=== PATIENT | female | born 1995 | race American Indian/Alaskan Native ===

== ENCOUNTER 2021-11-25 07:13 | Day surgery (SDC) | payer OTHER, MEDICAID ==
[~2021-11-25 07:13] MED LIST: Dextrose 5%-0.45% NaCl 1,000 ML IV SCH; Midazolam 1 MG/ML 2 ML SDV ONE; Sodium Chloride 0.9% 10 ML Syringe FLUSH PRN; Sodium Chloride 0.9% 10 ML Syringe FLUSH SCH; fentaNYL 100 MCG/2 ML SDV ONE
[2021-11-25] MEDS ORDERED: Midazolam 1 MG/ML 2 ML SDV IV ONE ×5 (07:14→08:25)
[2021-11-25] MEDS ORDERED: fentaNYL 100 MCG/2 ML SDV IV ONE ×3 (07:14→08:20)
== END 2021-11-25 10:45 | disposition home or self-care (01) ==
LOC: DL.ENDO 07:13
PROVIDERS: ATTEND Internal Medicine Gastroenterology
DX: K57.31 Diverticulosis of large intestine without perforation or abscess with bleeding (principal); K64.4 Residual hemorrhoidal skin tags; K64.8 Other hemorrhoids; K59.09 Other constipation; E66.09 Other obesity due to excess calories; Z88.8 Allergy status to other drugs, medicaments and biological substances; Z01.812 Encounter for preprocedural laboratory examination; Z20.822 Contact with and (suspected) exposure to COVID-19; Z86.16 Personal history of COVID-19
CPT/HCPCS: 45378; 87635; J2250; J3010; J7042; U0002

== ENCOUNTER 2021-12-23 06:42 | Day surgery (SDC) | payer OTHER, MEDICAID ==
[2021-12-23] MEDS ORDERED: Midazolam 1 MG/ML 2 ML SDV IV ONE ×3 (06:43→08:40)
[2021-12-23] MEDS ORDERED: fentaNYL 100 MCG/2 ML SDV IV ONE ×3 (06:43→08:38)
[2021-12-23] MEDS ORDERED: Dextrose 5%-0.45% NaCl 1,000 ML IV SCH (07:15)
== END 2021-12-23 10:55 | disposition home or self-care (01) ==
LOC: DL.ENDO 06:42
PROVIDERS: ATTEND Internal Medicine Gastroenterology
DX: D72.820 Lymphocytosis (symptomatic) (principal); E66.09 Other obesity due to excess calories; K59.09 Other constipation; Z68.41 Body mass index [BMI] 40.0-44.9, adult; Z01.812 Encounter for preprocedural laboratory examination; Z20.822 Contact with and (suspected) exposure to COVID-19
CPT/HCPCS: 87077; J2250; J3010; J7042; U0002

== ENCOUNTER 2023-03-20 12:10 | Emergency (ER) | payer OTHER ==
[2023-03-20] MEDS ORDERED: Sodium Chloride 0.9% 10 ML Syringe FLUSH PRN (12:33)
[2023-03-20] MEDS ORDERED: Sodium Chloride 0.9% 1,000 ML IV ONE ×2 (12:34→12:36)
[2023-03-20] MEDS ORDERED: Ketorolac 30 MG/ML SDV IVPUSH ONE (12:34)
[2023-03-20] MEDS ORDERED: diphenhydrAMINE 50 MG/ML SDV IVPUSH ONE (12:35)
[2023-03-20] MEDS ORDERED: Butorphanol 2 MG/ML SDV IVPUSH ONE (12:37)
[2023-03-20 12:50] LABS: BASOPHILS PERCENT AUTO 0.6 % (0.0-1.0); EOSINOPHILS PERCENT AUTO 2.5 % (1.0-3.0); HEMATOCRIT 36.8 % (37.0-47.0); HEMOGLOBIN 12.1 g/dL (12.0-16.0); LYMPHOCYTES PERCENT AUTO 26.1 % (20.5-50.1); MEAN CORPUSCULAR HEMOGLOBIN 28.5 pg (27.0-34.0); MEAN CORPUSCULAR HGB CONC 32.9 g/dL (33.0-35.0); MEAN CORPUSCULAR VOLUME 86.8 fL (80-100); MONOCYTES PERCENT AUTO 5.2 % (2-8); NEUTROPHILS PERCENT AUTO 65.6 % (42.2-75.2); PLATELET COUNT,PLT 321 10^3/uL (150-450); RED BLOOD CELL COUNT 4.24 10^6/uL (4.2-5.4); WHITE BLOOD CELL COUNT,WBC 8.3 10^3/uL (5.0-10.0)
[2023-03-20 13:26] LABS: SEDIMENTATION RATE MANUAL 7 mm/hr (0-20)
== END 2023-03-20 14:20 | disposition home or self-care (01) ==
LOC: DL.ED 12:10
DX: G43.809 Other migraine, not intractable, without status migrainosus (principal); J45.909 Unspecified asthma, uncomplicated; E66.9 Obesity, unspecified; Z88.8 Allergy status to other drugs, medicaments and biological substances; Z86.16 Personal history of COVID-19; Z79.51 Long term (current) use of inhaled steroids; Z68.41 Body mass index [BMI] 40.0-44.9, adult
CPT/HCPCS: 36415; 85025; 85651; 86140; 96361; 96374; 96375; 99283; J0595; J1200; J1885; J7030; J3490

== ENCOUNTER 2025-02-23 00:04 | Inpatient (IN) | payer BC, OTHER ==
[~2025-02-23 00:04] MED LIST changes: +Carboprost Tromethamine 250 MCG/1 ML Amp IM PRN; -Dextrose 5%-0.45% NaCl 1,000 ML IV SCH; -Midazolam 1 MG/ML 2 ML SDV ONE; +Misoprostol 50 MCG (1/2 of 100 MCG) Tab PO SCH; +Oxytocin/Lactated Ringers 30 UNIT/500 ML BAG IV SCH; -Sodium Chloride 0.9% 10 ML Syringe FLUSH SCH; +fentaNYL 100 MCG/2 ML SDV IVPUSH PRN; -fentaNYL 100 MCG/2 ML SDV ONE
[2025-02-23 00:40] LABS: PLATELET COUNT,PLT 225.0 10^3/uL (150-450); RED BLOOD CELL COUNT 3.95 10^6/uL (4.2-5.4); WHITE BLOOD CELL COUNT,WBC 11.0 10^3/uL (5.0-10.0)
[2025-02-23] MEDS: Misoprostol 50 MCG (1/2 of 100 MCG) Tab PO PRN (02:14)
[2025-02-23] MEDS: Penicillin G Potassium 5 MILLUNITS in Sodium Chloride 0.9% 100 ML IV ONE ×2 (11:35→12:44)
[2025-02-23] MEDS: Lactated Ringers 1,000 ML IV SCH (12:30)
[2025-02-23] MEDS: Penicillin G Potassium 3 MILLUNITS in Sodium Chloride 0.9% 100 ML IV SCH ×2 (12:43→14:59)
[2025-02-23] MEDS: Oxytocin/Normal Saline 30 UNIT/500 ML BAG IV SCH (15:31)
[2025-02-23] MEDS: Ondansetron 4 MG/2 ML SDV IVPUSH PRN (21:18)
[2025-02-23] MEDS: Nalbuphine HCl 10 MG/ 1ML Amp IM STA (22:16)
[2025-02-24] MEDS: Nalbuphine HCl 10 MG/ 1ML Amp IM STA (03:04)
[2025-02-24] MEDS ORDERED: fentaNYL 100 MCG/2 ML SDV ONE (11:07)
[2025-02-24] MEDS ORDERED: ePHEDrine 50 MG/ML SDV ONE ×2 (11:08→18:51)
[2025-02-24] MEDS ORDERED: Oxytocin/Normal Saline 30 UNIT/500 ML BAG ONE (16:12)
[2025-02-24] MEDS ORDERED: Sodium Chloride 0.9% 10 ML Syringe FLUSH PRN (16:32)
[2025-02-24] MEDS ORDERED: Oxytocin 10 Units/1 ML SDV IM PRN (16:32)
[2025-02-24] MEDS ORDERED: Carboprost Tromethamine 250 MCG/1 ML Amp IM PRN ×2 (16:32→18:24)
[2025-02-24] MEDS ORDERED: Lactated Ringers 1,000 ML IV SCH ×2 (16:45)
[2025-02-24] MEDS ORDERED: Oxytocin/Lactated Ringers 30 UNIT/500 ML BAG IV SCH (16:45)
[2025-02-24] MEDS ORDERED: Ondansetron 4 MG/2 ML SDV IVPUSH PRN (18:24)
[2025-02-24] MEDS ORDERED: ePHEDrine 50 MG/ML SDV IVPUSH PRN (18:24)
[2025-02-24] MEDS ORDERED: Acetaminophen/oxyCODONE 325-5 MG Tab PO PRN (18:24)
[2025-02-24] MEDS ORDERED: diphenhydrAMINE 50 MG/ML SDV IVPUSH PRN (18:24)
[2025-02-24] MEDS ORDERED: Ketorolac 30 MG/ML SDV IVPUSH SCH (18:30)
[2025-02-24] MEDS ORDERED: Ondansetron 4 MG/2 ML SDV ONE (18:51)
[2025-02-24] MEDS ORDERED: Dexamethasone 4 MG/ML SDV ONE (18:52)
[2025-02-24] MEDS ORDERED: Ketorolac 30 MG/ML SDV ONE (18:53)
[2025-02-24] MEDS: Ketorolac 30 MG/ML SDV IVPUSH SCH (23:56)
[2025-02-25] MEDS: Lactated Ringers 1,000 ML IV SCH
[2025-02-25] MEDS: Sodium Chloride 0.9% 10 ML Syringe FLUSH SCH (00:16)
[2025-02-25] MEDS: Lactated Ringers 1,000 ML IV ONE (00:17)
[2025-02-25 05:56] LABS: PLATELET COUNT,PLT 199.0 10^3/uL (150-450); RED BLOOD CELL COUNT 3.5 10^6/uL (4.2-5.4); WHITE BLOOD CELL COUNT,WBC 15.7 10^3/uL (5.0-10.0)
[2025-02-25] MEDS: Prenatal Multivitamin with Calcium/Folic Acid/Iron Tab PO SCH (08:37)
[2025-02-25] MEDS: Acetaminophen/oxyCODONE 325-5 MG Tab PO PRN (15:06)
[2025-02-26] MEDS: Ondansetron 4 MG Tab.DIS PO ONE (09:15)
[2025-02-26] MEDS: Ondansetron 4 MG Tab.DIS PO PRN (16:50)
[2025-02-26] MEDS: diphenhydrAMINE 50 MG/ML SDV IM ONE (17:08)
[2025-02-26] MEDS: Ketorolac 30 MG/ML SDV IM ONE (17:08)
== END 2025-02-27 14:29 | disposition home or self-care (01) | DRG 540 ==
LOC: DL.OB 00:04 → OBSVTOIN 02-24 17:38
PROVIDERS: ADMIT Family Medicine; ATTEND Family Medicine
PROC: 4A1HXCZ Monitoring of Products of Conception, Cardiac Rate, External Approach (ICD-10-PCS; 2025-02-24)
PROC: 10H07YZ Insertion of Other Device into Products of Conception, Via Natural or Artificial Opening (ICD-10-PCS; 2025-02-24)
PROC: 10907ZC Drainage of Amniotic Fluid, Therapeutic from Products of Conception, Via Natural or Artificial Opening (ICD-10-PCS; 2025-02-24)
PROC: 10D00Z1 Extraction of Products of Conception, Low, Open Approach (ICD-10-PCS; principal; 2025-02-24 17:00)
PROC: 3E0R3GC Introduction of Other Therapeutic Substance into Spinal Canal, Percutaneous Approach (ICD-10-PCS; 2025-02-25)
DX: O13.4 Gestational [pregnancy-induced] hypertension without significant proteinuria, complicating childbirth (principal); Z3A.38 38 weeks gestation of pregnancy; Z37.0 Single live birth; O24.420 Gestational diabetes mellitus in childbirth, diet controlled; O99.824 Streptococcus B carrier state complicating childbirth; O99.52 Diseases of the respiratory system complicating childbirth; J45.909 Unspecified asthma, uncomplicated; O99.344 Other mental disorders complicating childbirth; O98.32 Other infections with a predominantly sexual mode of transmission complicating childbirth; O63.0 Prolonged first stage (of labor); O77.9 Labor and delivery complicated by fetal stress, unspecified; O32.9XX0 Maternal care for malpresentation of fetus, unspecified, not applicable or unspecified; O99.62 Diseases of the digestive system complicating childbirth; F41.9 Anxiety disorder, unspecified; F32.A Depression, unspecified; A60.00 Herpesviral infection of urogenital system, unspecified; K21.9 Gastro-esophageal reflux disease without esophagitis
CPT/HCPCS: 36415; 51702; 85027; 86850; 86900; 86901; 94010; A9270-GY; J1200; J1885; J2300; J2405; J2540; J2590; J2765; J7120

== ENCOUNTER 2025-03-01 13:30 | Emergency (ER) | payer BC, OTHER ==
[2025-03-01 14:05] LABS: BASOPHILS PERCENT AUTO 0.2 % (0.0-1.0); EOSINOPHILS PERCENT AUTO 1.6 % (1.0-3.0); LYMPHOCYTES PERCENT AUTO 7.8 % (20.5-50.1); MONOCYTES PERCENT AUTO 4.1 % (2-8); NEUTROPHILS PERCENT AUTO 86.3 % (42.2-75.2); PLATELET COUNT,PLT 284 10^3/uL (150-450); RED BLOOD CELL COUNT 3.79 10^6/uL (4.2-5.4); WHITE BLOOD CELL COUNT,WBC 11.8 10^3/uL (5.0-10.0)
[2025-03-01] MEDS: MVI, Adult with Vitamin K 10 ML, Folic Acid 1 MG, Thiamine 100 MG in Lactated Ringers 1... IV ONE (14:07)
[2025-03-01 14:20] LABS: A/G RATIO 0.59; ALANINE AMINOTRANSFERASE,ALT 27.0 U/L (14-59); ASPARTATE AMNIOTRANSFERASE,AST 19.0 U/L (15-37); BILIRUBIN TOTAL 0.5 mg/dL (0.2-1.0); BLOOD UREA NITROGEN,BUN 7.0 mg/dL (7-18); CARBON DIOXIDE,CO2 27.0 mmol/L (21-32); CHLORIDE,CL 105.0 mmol/L (98-107); CREATININE 0.56 mg/dL (0.55-1.02); EST CRCL DRUG DOSING (CG) 119.35 mL/min; ESTIMATED GFR 128.0 mL/min (>=60); GLUCOSE RANDOM 98.0 mg/dL (70-99); POTASSIUM,K 3.6 mmol/L (3.5-5.1); PROTEIN TOTAL,TP 6.2 g/dL (6.4-8.2); SODIUM,NA 139.0 mmol/L (136-145)
[2025-03-01] MEDS: diphenhydrAMINE 50 MG/ML SDV IVPUSH ONE (15:25)
[2025-03-01] MEDS: Vitamin B6-pyridOXINE 100 MG Tab PO ONE (15:28)
== END 2025-03-01 15:47 | disposition home or self-care (01) ==
LOC: DL.ED 13:30
DX: O89.4 Spinal and epidural anesthesia-induced headache during the puerperium (principal); Z79.899 Other long term (current) drug therapy; Z88.8 Allergy status to other drugs, medicaments and biological substances
CPT/HCPCS: 36415; 80053; 83735; 85025; 96365; 96375; 99283; 99284-25; A9270-GY; J1200; J2765; J3411; J3490; J7120